=== PATIENT | male | born 1935 | race Caucasian/White ===

== ENCOUNTER 2017-11-27 14:16 | Emergency (ER) | payer OTHER, BC ==
--- NOTE | 2017-11-27 14:40 | PDOC ---
History of Present Illness - General History Source: Patient Exam Limitations: No Limitations - History of Present Illness Initial Comments: 11/27/17 15:55 The patient is an 82 year old male with history of hypertension, CHF, GERD, thyroid CA s/p thyroidectomy, reportedly diagnosed with asthma earlier this, who presents to the ED complaining of shortness of breath that began around 1: 00 PM today. The patient reports he was sitting on his couch doing nothing in particular when his shortness of breath acutely began. His SOB is improved with lying flat and is associated with mild lightheadedness. He states he took in Ventolin inhaler without apparent subsequent improvement. On ED arrival his symptoms are improved. The patient denies any chest pain, peripheral edema, or palpitations. He denies wheezing or cough. He denies fever or chills. He denies nausea, vomiting, or diarrhea. He did return from [place] two weeks ago. Otherwise no recent travel, long periods of immobilization. PCP: Dr. Byron Oliver Pic[facility] Nurse: Dr. Dykes at [facility] <Jennifer Guerrero - Last Filed: 11/27/17 15:55> <Myra Carrillo - Last Filed: 11/27/17 17:38> - General Chief Complaint: Respiratory Stated Complaint: SHORTNESS OF BREATH Time Seen by Provider: 11/27/17 14:26 Past History <Jennifer Guerrero - Last Filed: 11/27/17 15:55> <Myra Carrillo - Last Filed: 11/27/17 17:38> - Past Medical History Allergies/Adverse Reactions: Allergies Allergy/AdvReac Type Severity Reaction Status Date / Time No Known Allergies Allergy Unverified 11/27/17 14:27 Home Medications: Ambulatory Orders Albuterol Sulfate Inhaler - [Ventolin Hfa Inhaler -] 2 inh PO PRN 11/27/17 Enalapril Maleate 5 mg PO DAILY 11/27/17 Esomeprazole Magnesium [Nexium] 40 mg PO HS 11/27/17 Finasteride [Proscar -] 5 mg PO HS 11/27/17 Furosemide [Lasix] 60 mg PO DAILY 11/27/17 Levothyroxine [Synthroid -] 175 mcg PO DAILY 11/27/17 Nebivolol HCl [Bystolic] 20 mg PO DAILY 11/27/17 Tamsulosin HCl [Flomax] 0.4 mg PO HS 11/27/17 Review of Systems - Review of Systems Able to Perform ROS?: Yes Comments:: 11/27/17 16:02 GENERAL/CONSTITUTIONAL: No fever or chills. No weakness. HEAD, EYES, EARS, NOSE AND THROAT: No change in vision. No ear pain or discharge. No sore throat. CARDIOVASCULAR: +Lightheadedness (resolved). No chest pain or peripheral edema. RESPIRATORY: +SOB (resolved). No cough, wheezing, or hemoptysis. GASTROINTESTINAL: No nausea, vomiting, diarrhea or constipation. GENITOURINARY: No dysuria, frequency, or change in urination. MUSCULOSKELETAL: No joint or muscle swelling or pain. No neck or back pain. SKIN: No rash NEUROLOGIC: No headache, vertigo, loss of consciousness, or change in strength/ sensation. ENDOCRINE: No increased thirst. No abnormal weight change. HEMATOLOGIC/LYMPHATIC: No anemia, easy bleeding, or history of blood clots. ALLERGIC/IMMUNOLOGIC: No hives or skin allergy. <Jennifer Guerrero - Last Filed: 11/27/17 15:55> *Physical Exam - Vital Signs Last Vital Signs Temp Pulse Resp BP Pulse Ox 97.3 F L 86 20 169/89 99 11/27/17 14:18 11/27/17 14:18 11/27/17 14:18 11/27/17 14:18 11/27/17 14:18 - Physical Exam Comments: 11/27/17 16:13 GENERAL: Awake, alert, and fully oriented, in no acute distress HEAD: No signs of trauma EYES: PERRLA, EOMI, sclera anicteric, conjunctiva clear ENT: Auricles normal inspection, nares patent. Moist mucosa NECK: Normal ROM, supple, no JVD, or masses LUNGS: Breath sounds equal, clear to auscultation bilaterally. No wheezes, and no crackles HEART: Regular rate and rhythm, normal S1 and S2, no murmurs, rubs or gallops ABDOMEN: Soft, nontender, normoactive bowel sounds. No guarding, no rebound. No masses EXTREMITIES: Normal range of motion, no edema. No clubbing or cyanosis. No cords, erythema, or tenderness NEUROLOGICAL: Alert and oriented x 3. Moves all extremities. Face is symmetric. SKIN: Warm, Dry, normal turgor, no rashes or lesions noted. <Jennifer Guerrero - Last Filed: 11/27/17 15:55> ED Treatment Course - LABORATORY CBC & Chemistry Diagram: 11/27/17 15:22 11/27/17 15:22 - ADDITIONAL ORDERS Additional order review: 11/27/17 15:22 RBC 4.78 MCV 91.1 MCHC 33.4 RDW 14.3 MPV 11.7 H Neutrophils % 77.2 Lymphocytes % 13.2 Monocytes % 5.5 Eosinophils % 2.7 Basophils % 1.4 <Jennifer Guerrero - Last Filed: 11/27/17 15:55> - LABORATORY CBC & Chemistry Diagram: 11/27/17 15:22 11/27/17 15:22 <Myra Carrillo - Last Filed: 11/27/17 17:38> Medical Decision Making - Medical Decision Making 11/27/17 17:35 Pt with episode of SOB earlier this afternoon after lying down. Currently comfortable. BNP somewhat elevated, but patient is asymptomatic at this time. Will give an extra dose of lasix in ED. I suspect his symptoms are due to increase salt intake recently, he has stated he has not had as much urine output recently. Stable for DC home. <Myra Carrillo - Last Filed: 11/27/17 17:38> *DC/Admit/Observation/Transfer - Attestations Scribe Attestion: 11/27/17 16:19 Documentation prepared by Jennifer Guerrero, acting as medical appliance maker for Myra Carrillo MD. <Jennifer Guerrero - Last Filed: 11/27/17 15:55> - Discharge Dispostion Admit: No <Myra Carrillo - Last Filed: 11/27/17 17:38> Diagnosis at time of Disposition: Shortness of breath - Discharge Dispostion Disposition: HOME Condition at time of disposition: Stable
[2017-11-27 14:41] VITALS: BMI 32.1
[2017-11-27 15:35] LABS: BASO % 1.4 % (0-2.0); EOS % 2.7 % (0-4.5); HEMATOCRIT 43.5 % (35.4-49); HEMOGLOBIN 14.6 GM/dl (11.7-16.9); LYMPH % 13.2 % (8-40); MCH 30.4 pg (25.7-33.7); MCHC 33.4 g/dl (32.0-35.9); MEAN CELL VOLUME 91.1 fl (80-96); MEAN PLT VOLUME 11.7 fl (7.5-11.1); MONO % 5.5 % (3.8-10.2); NEUT % 77.2 % (42.8-82.8); PLATELET COUNT 119 K/MM3 (134-434); RBC 4.78 M/mm3 (4.00-5.60); RDW 14.3 % (11.9-15.9); WHITE BLOOD COUNT 7.7 K/mm3 (4.0-10.8)
[2017-11-27 15:57] LABS: ALBUMIN 3.9 g/dl (3.5-5.0); ALK PHOS 63 U/L (32-92); ANION GAP 6 (8-16); BILIRUBIN,TOTAL 0.9 mg/dl (0.2-1.0); BLOOD UREA NITROGEN 31 mg/dl (7-18); CALCIUM 9.7 mg/dl (8.4-10.2); CHLORIDE 105 mmol/L (98-107); CO2 27 mmol/L (22-28); CREATININE 1.5 mg/dl (0.6-1.3); GLUCOSE,RANDOM 107 mg/dl (74-106); SGOT/AST 23 U/L (10-42); SGPT/ALT 30 U/L (10-40); SODIUM 138 mmol/L (136-145); TOT PROT 6.5 g/dl (6.4-8.3)
[2017-11-27 16:04] LABS: TROPONIN I (DFP) 0.03 ng/ml (0.03-0.50)
[2017-11-27 16:37] VITALS: TEMP 97.4
[2017-11-27 17:02] LABS: N-TERMINAL BNP 1676.63 pg/ml (5-450)
[2017-11-27] MEDS ORDERED: FUROSEMIDE 40 MG/4 ML INJECTABLE VIAL IVPUSH ONE (17:17)
[2017-11-27] MEDS ORDERED: FUROSEMIDE 40 MG/4 ML INJECTABLE VIAL ONE (17:22)
[2017-11-27 17:30] VITALS: BP 145/75; PULSE 71
--- NOTE | 2017-11-28 17:00 | EKG ---
Test Reason : Blood Pressure : / mmHG Vent. Rate : 071 BPM Atrial Rate : 071 BPM P-R Int : 128 ms QRS Dur : 104 ms QT Int : 410 ms P-R-T Axes : 020 -42 058 degrees QTc Int : 445 ms POOR DATA QUALITY, INTERPRETATION MAY BE ADVERSELY AFFECTED NORMAL SINUS RHYTHM LEFT AXIS DEVIATION MINIMAL VOLTAGE CRITERIA FOR LVH, MAY BE NORMAL VARIANT NONSPECIFIC ST AND T WAVE ABNORMALITY ABNORMAL ECG NO PREVIOUS ECGS AVAILABLE Confirmed by GAVI TINSLEY, MILO ([id number]) on 11/28/2017 5:00:33 PM Referred By: Luther SYED Confirmed By:MILO GATICA MD
== END 2017-11-27 18:06 | disposition home or self-care (01) ==
LOC: FER 14:16
PROC: 3E033GC Introduction of Other Therapeutic Substance into Peripheral Vein, Percutaneous Approach (ICD-10-PCS; principal; 2017-11-27)
DX: R06.02 Shortness of breath (principal)
CPT/HCPCS: 36415; 71010-TC; 80053; 82550; 83880; 84484; 85025; 93005; 99284-25